=== PATIENT | female | born 2000 | race Two or more races ===

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

== ENCOUNTER 2020-06-19 19:32 | Emergency (ER) | payer OTHER ==
[~2020-06-19] VITALS: Ht 152.4 cm; Wt 74.8 kg
[~2020-06-19 19:32] MED LIST: ADVIL LIQUI-GE200 MG PO; PROTONIX40 MG PO
[2020-06-22] MEDS ORDERED: TRAMADOL HCL50 MG PO (10:14)
== END 2020-06-19 22:47 | disposition home or self-care (01) ==
LOC: EMR PED 19:32 → ER 19:32 → EMR PED 20:25
DX: S32.018A Other fracture of first lumbar vertebra, initial encounter for closed fracture (principal); S32.028A Other fracture of second lumbar vertebra, initial encounter for closed fracture; W18.09XA Striking against other object with subsequent fall, initial encounter; Y93.I9 Activity, other involving external motion; Y92.832 Beach as the place of occurrence of the external cause; Y99.8 Other external cause status

== ENCOUNTER 2020-06-21 09:24 | Emergency (ER) | payer OTHER ==
[~2020-06-21] VITALS: Ht 165.1 cm; Wt 74.8 kg
[2020-06-21] MEDS ORDERED: NEURONTIN300 MG PO (12:43)
[2020-06-21] MEDS ORDERED: KETO10TA2 PO (12:43)
[2020-06-22] MEDS ORDERED: TRAMADOL HCL50 MG PO (10:14)
== END 2020-06-21 13:42 | disposition home or self-care (01) ==
LOC: EMR PED 09:24
DX: S32.018D Other fracture of first lumbar vertebra, subsequent encounter for fracture with routine healing (principal); S32.028D Other fracture of second lumbar vertebra, subsequent encounter for fracture with routine healing; M54.5 Low back pain; W18.09XD Striking against other object with subsequent fall, subsequent encounter

== ENCOUNTER 2020-06-22 10:59 | Outpatient (CLI) | payer OTHER ==
[~2020-06-22 10:59] MED LIST changes: +KETO10TA2 PO; +NEURONTIN300 MG PO; +TRAMADOL HCL50 MG PO
== END 2020-06-22 11:17 | disposition home or self-care (01) ==
LOC: MRI 10:59
PROVIDERS: ATTEND Physical Medicine & Rehabilitation
DX: M54.5 Low back pain (principal); S32.018A Other fracture of first lumbar vertebra, initial encounter for closed fracture; Y99.8 Other external cause status
CPT/HCPCS: 72148

== ENCOUNTER 2024-03-22 00:47 | Emergency (ER) | payer OTHER ==
[~2024-03-22] VITALS: Ht 162.6 cm; Wt 68.9 kg
[2024-03-22] MEDS ORDERED: PROMETHAZINE HCL 25 MG/ML AMPUL IM STA (02:33)
[2024-03-22] MEDS ORDERED: METOCLOPRAMIDE HCL 5 MG/ML VIAL IM STA (02:33)
[2024-03-22] MEDS ORDERED: 0.9 % SODIUM CHLORIDE 500 ML IV STA (02:34)
[2024-03-22] MEDS ORDERED: ONDANSETRON HCL 2 MG/ML VIAL IV STA (02:35)
[2024-03-22] MEDS ORDERED: FAMOtidine 10 MG/ML (4ML VIAL) IV PUSH STA (02:35)
[2024-03-22] MEDS ORDERED: ONDANSETRON HCL 2 MG/ML VIAL ONE (02:41)
[2024-03-22] MEDS ORDERED: PROMETHAZINE HCL 50 MG/ML AMPUL IM ONE (02:41)
[2024-03-22] MEDS ORDERED: METOCLOPRAMIDE HCL 5 MG/ML VIAL ONE (02:41)
[2024-03-22] MEDS ORDERED: FAMOTIDINE/PF 20 MG/2 ML VIAL ONE (02:41)
== END 2024-03-22 05:09 | disposition home or self-care (01) ==
LOC: ER 00:49
DX: K29.70 Gastritis, unspecified, without bleeding (principal)